=== PATIENT | female | born 1945 | race Caucasian/White ===

== ENCOUNTER 2017-10-06 16:01 | Outpatient (CLI) | payer MEDICARE ==
--- NOTE | 2017-10-06 14:26 | RAD ---
PA AND LATERAL VIEWS CHEST: HISTORY: Dyspnea. FINDINGS: Comparison is made with the exam of 09/11/16. The heart size is normal. The lungs are expanded without focal areas of consolidation, pneumothorax, or pleural effusions. There are mild degenerative changes in the spine. IMPRESSION: No radiographic evidence of acute cardiopulmonary process. POS: [facility]
== END 2017-10-06 16:02 | disposition home or self-care (01) ==
LOC: RAD 16:01
PROVIDERS: ATTEND Internal Medicine Critical Care Medicine
DX: R06.00 Dyspnea, unspecified (principal)
CPT/HCPCS: 71046

== ENCOUNTER 2018-06-23 15:03 | Outpatient (CLI) | payer MEDICARE | END 2018-06-23 15:04 | disposition home or self-care (01) | LOC: BICMAMMO 15:03 | PROVIDERS: ATTEND Internal Medicine | DX: Z12.31 Encounter for screening mammogram for malignant neoplasm of breast (principal); R92.1 Mammographic calcification found on diagnostic imaging of breast; Z80.3 Family history of malignant neoplasm of breast | CPT/HCPCS: 77063; 77067 ==

== ENCOUNTER 2020-03-05 15:12 | Outpatient (CLI) | payer MEDICARE ==
--- NOTE | 2020-03-05 16:44 | MMO ---
Bilateral MAMMO Bilat Screen [facility]. CLINICAL HISTORY: Patient is 74 years old and is seen for screening. The patient has no personal history of cancer. The patient has a history of right Cyst Aspiration at age 40. VIEWS: The views performed were: bilateral craniocaudal with tomosynthesis and bilateral mediolateral oblique with tomosynthesis. FILMS COMPARED: The present examination has been compared to prior imaging studies performed at [facility] on 03/21/2015, 03/24/2016, 04/13/2017 and 06/23/2018. This study has been interpreted with the assistance of computer-aided detection. MAMMOGRAM FINDINGS: There are scattered fibroglandular densities. Benign calcifications are noted bilaterally. There are no suspicious masses, suspicious calcifications, or new areas of architectural distortion. IMPRESSION: THERE IS NO MAMMOGRAPHIC EVIDENCE OF MALIGNANCY. A ROUTINE FOLLOW-UP MAMMOGRAM IN 1 YEAR IS RECOMMENDED. THE RESULTS OF THIS EXAM WERE SENT TO THE PATIENT. ACR BI-RADS Category 2 - Benign finding MAMMOGRAPHY NOTE: 1. A negative mammogram report should not delay a biopsy if a dominant of clinically suspicious mass is present. 2. Approximately 10% to 15% of breast cancers are not detected by mammography. 3. Adenosis and dense breasts may obscure an underlying neoplasm. Reported by: ANNIE RICH MD Electonically Signed: [id number]
== END 2020-03-05 15:13 | disposition home or self-care (01) ==
LOC: BICMAMMO 15:12
PROVIDERS: ATTEND Internal Medicine
DX: Z12.31 Encounter for screening mammogram for malignant neoplasm of breast (principal)
CPT/HCPCS: 77063; 77067

== ENCOUNTER 2020-03-12 12:42 | Outpatient (CLI) | payer MEDICARE ==
--- NOTE | 2020-03-12 13:58 | MRI ---
MRI LUMBAR SPINE NONCONTRAST: DATE: 03/12/2020 HISTORY: 74-year-old female with low back pain M 54.5, and leg pain M 79.606 COMPARISON: None FINDINGS: 5 lumbar-type vertebrae. Vertebral body heights are maintained. No major bone marrow signal abnormali ty. No high-grade disc space narrowing at any level. Conus medullaris terminates at mid-lower L1 level. T12-L1:Minimal disc bulge. Mild to moderate bilateral facet DJD. No central or neural foraminal steno sis.. L1-2:Minimal disc bulge. Mild to moderate neural foraminal stenosis. No high-grade central spinal can al stenosis. Mild to moderate bilateral facet DJD. L2-3:Moderate bilateral facet DJD. Diffuse disc bulge. Mild to moderate bilateral neural foraminal st enosis. Mild to moderate central spinal canal stenosis. Posterior epidural fat pad. Somewhat severe thecal sac stenosis. Ligamentum flavum thickening. L3-4:Severe bilateral facet DJD causes mild grade 1 anterolisthesis of L3 on L4. Diffuse disc bulge. Mild to moderate right and mild left neural foraminal stenosis. Moderate ligamentum flavum thickening. Severe central spinal canal stenosis. L4-5:Severe bilateral facet DJD. Moderate ligamentum flavum thickening. Grade 1 anterolisthesis of L4 on L5. Diffuse disc bulge. Mild to moderate right and moderate left neural foraminal stenosis. Very severe central spinal canal stenosis with distortion of thecal sac into trefoil configuration. L5-S1:Severe bilateral facet DJD. Lateral recess stenosis bilaterally, moderate on right and mild on left. Ligamentum flavum thickening. Mild to moderate central spinal canal stenosis. Mild to moderate bilateral neural foraminal stenosis. No disc herniation or disc bulge. IMPRESSION: 1) lumbar spondylosis consisting of high-grade facet osteoarthrosis bilaterally at multiple levels, e specially inferiorly. 2) extremely severe central spinal canal stenosis at L4-5, and severe central spinal canal stenosis a t L3-4. 3) grade 1 spondylolisthesis at L3-4 and L4-5.
--- NOTE | 2020-03-12 14:02 | RAD ---
RADIOGRAPH LUMBAR SPINE 3 VIEWS: DATE: 03/12/2020 HISTORY: 74-year-old female with low back pain and lumbar radiculopathy TECHNIQUE: AP, +3 lateral views in flexion, neutral, and extension. FINDINGS: 5 lumbar-type vertebrae. Mild levoscoliosis with apex of curvature at T11. Vertebral body heights are maintained. Bilateral facet DJD throughout almost the entire lumbar spine, especially severe at mid and lower levels. Mild grade 1 anterolisthesis of L3 on L4. Mild grade 1 anterolisthesis of L4 on L5. Limited range of motion on flexion. No instability between flexion and extension. No high-grade disc space narrowing at any level. IMPRESSION: 1) lumbar spondylosis consisting of multilevel severe facet osteoarthrosis, especially at lower level s. 2) grade 1 spondylolisthesis at L3-4 and L4-5. 3) no instability identified.
== END 2020-03-12 12:43 | disposition home or self-care (01) ==
LOC: SCSMRI 12:42
PROVIDERS: ATTEND Surgery
DX: M54.5 Low back pain (principal); M79.606 Pain in leg, unspecified; M47.816 Spondylosis without myelopathy or radiculopathy, lumbar region; M47.817 Spondylosis without myelopathy or radiculopathy, lumbosacral region; M43.16 Spondylolisthesis, lumbar region; M48.061 Spinal stenosis, lumbar region without neurogenic claudication
CPT/HCPCS: 72120; 72148

== ENCOUNTER 2021-03-12 14:04 | Outpatient (CLI) | payer MEDICARE | END 2021-03-12 14:05 | disposition home or self-care (01) | LOC: BICMAMMO 14:04 | PROVIDERS: ATTEND Internal Medicine | DX: Z12.31 Encounter for screening mammogram for malignant neoplasm of breast (principal); Z98.890 Other specified postprocedural states; Z80.3 Family history of malignant neoplasm of breast | CPT/HCPCS: 77063; 77067 ==

== ENCOUNTER 2024-06-20 14:34 | Outpatient (CLI) | payer OTHER | END 2024-06-20 14:35 | disposition home or self-care (01) | LOC: RAD 14:34 | PROVIDERS: ATTEND Internal Medicine Critical Care Medicine | DX: R06.00 Dyspnea, unspecified (principal); J84.9 Interstitial pulmonary disease, unspecified | CPT/HCPCS: 71046 ==